=== PATIENT | male | born 1990 | race Caucasian/White ===

== ENCOUNTER 2016-11-06 09:07 | Emergency (ER) | payer OTHER ==
[2016-11-06 10:19] LABS: CREATININE 1.1 mg/dL (0.7-1.2); POTASSIUM 4.3 mmol/L (3.5-5.1)
[2016-11-06 10:34] LABS: BILIRUBIN NEGATIVE (NEGATIVE); BLOOD TRACE-INTACT Ery/uL (NEGATIVE); CLARITY CLEAR (CLEAR); COLOR YELLOW (YELLOW); GLUCOSE (U) NORMAL (NORMAL); KETONE (U) NEGATIVE (NEGATIVE); LEUKOCYTES NEGATIVE Leu/uL (NEGATIVE); NITRITE NEGATIVE (NEGATIVE); PROTEIN NEGATIVE (NEGATIVE); pH 6.5 (5.0-9.0)
[2016-11-06 10:37] LABS: BASOPHIL 0.3 % (0-2); EOSINOPHIL 1.8 % (0-5); HCT 45.6 % (42.0-52.0); HGB 16.8 g/dl (13.2-18.0); LYMPHOCYTE 44.4 % (15-48); MCH 32.7 pg (25.0-31.0); MCHC 36.8 g/dL (32.0-36.0); MCV 88.9 fL (78.0-100.0); MONOCYTE 12.3 % (0-12); NEUTROPHIL 41.2 % (41-80); PLT 247 K/uL (150-400); RBC 5.13 M/uL (4.70-6.00); RDW 12.5 % (11.5-14.0); WBC 6.6 K/uL (4.0-10.5)
[2016-11-06 11:25] LABS: BACTERIA TRACE; SQUAMOUS EPITHELIAL CELLS RARE
[2016-11-06 11:26] LABS: URINARY WBC RARE
== END 2016-11-06 11:55 | disposition home or self-care (01) ==
LOC: FER 09:07
PROVIDERS: Internal Medicine
DX: N20.1 Calculus of ureter (principal); Z87.442 Personal history of urinary calculi; Z88.0 Allergy status to penicillin
CPT/HCPCS: 36415; 74000; 80048; 81001; 85025; J1170

== ENCOUNTER 2016-11-15 23:47 | Emergency (ER) | payer OTHER ==
[2016-11-16 02:30] LABS: BILIRUBIN NEGATIVE (NEGATIVE); BLOOD TRACE-INTACT Ery/uL (NEGATIVE); CLARITY CLEAR (CLEAR); COLOR YELLOW (YELLOW); GLUCOSE (U) NORMAL (NORMAL); KETONE (U) NEGATIVE (NEGATIVE); LEUKOCYTES NEGATIVE Leu/uL (NEGATIVE); NITRITE NEGATIVE (NEGATIVE); PROTEIN NEGATIVE (NEGATIVE); UROBILINOGEN 0.2 mg/dL (0.2-1.0)
[2016-11-16 02:34] LABS: BACTERIA TRACE; SQUAMOUS EPITHELIAL CELLS RARE; URINARY RBC RARE; URINARY WBC RARE
[2016-11-16 03:07] LABS: BASOPHIL 0.3 % (0-2); EOSINOPHIL 1.7 % (0-5); HGB 15.4 g/dl (13.2-18.0); LYMPHOCYTE 44.7 % (15-48); MCH 32.8 pg (25.0-31.0); MCHC 35.8 g/dL (32.0-36.0); MCV 91.7 fL (78.0-100.0); MONOCYTE 10.2 % (0-12); MPV 9.8 fL (6.0-9.5); NEUTROPHIL 43.1 % (41-80); PLT 250 K/uL (150-400); RBC 4.69 M/uL (4.70-6.00); RDW 12.8 % (11.5-14.0); WBC 9.3 K/uL (4.0-10.5)
[2016-11-16 03:18] LABS: ALBUMIN 4.4 g/dL (3.5-5.0); BILIRUBIN - TOTAL 0.3 mg/dL (0.1-1.0); CREATININE 0.9 mg/dL (0.7-1.2); GLOBULIN (CALCULATION) 2.4 g/dL (2.2-4.2); POTASSIUM 4.1 mmol/L (3.5-5.1); TOTAL PROTEIN 6.8 g/dL (6.4-8.3)
== END 2016-11-16 06:50 | disposition home or self-care (01) ==
LOC: FER 23:47
PROVIDERS: Emergency Medicine Emergency Medical Services
DX: R10.32 Left lower quadrant pain (principal); N50.82 Scrotal pain; R11.0 Nausea; R30.9 Painful micturition, unspecified; E86.9 Volume depletion, unspecified; F17.210 Nicotine dependence, cigarettes, uncomplicated; Z87.442 Personal history of urinary calculi; Z88.0 Allergy status to penicillin
CPT/HCPCS: 36415; 80053; 81001; 85025; J1170; J1885; J2270; J2405